=== PATIENT | male | born 1990 | race Caucasian/White ===

== ENCOUNTER 2024-02-29 09:36 | Emergency (ER) | payer OTHER, SELFPAY ==
[2024-02-29 09:58] VITALS: BP 148/98; PULSE 95; RESP 20; TEMP 36.8; O2SAT 96
[2024-02-29 10:12] LABS: Basophils Absolute Auto 0.1 K/mm3 (0.0-0.1); Basophils Percent Auto 1.1 % (0.2-1.2); Eosinophils Absolute Auto 0.2 K/mm3 (0-0.3); Eosinophils Percent Auto 2.7 % (0-4.4); Hematocrit 48.2 % (42.0-52.0); Immature Granulocyte Absolute 0.06 K/mm3 (0.00-0.031); Immature Granulocyte Percent A 0.8 % (0-0.5); Lymphocytes Absolute Auto 1.92 K/mm3 (0.9-3.2); Lymphocytes Percent Auto 26.2 % (18.3-44.2); Mean Corpuscular HGB Conc 35.3 g/dl (32-36); Mean Corpuscular Hemoglobin 32.2 pg (26-34); Mean Corpuscular Volume 91.3 fl (80-100); Mean Platelet Volume 8.3 fl (7.4-10.4); Monocytes Absolute Auto 0.6 K/mm3 (0.1-0.6); Neutrophils Absolute Auto 4.5 K/mm3 (1.3-6.7); Neutrophils Percent Auto 61.2 % (45.5-73.1); Platelet Count Result 397 k/mm3 (150-375); Red Blood Count 5.28 M/mm3 (4.6-6.20); Red Cell Distribution Width 12.3 % (11.5-14.5); White Blood Count 7.3 K/mm3 (4.5-10.0)
[2024-02-29 10:27] LABS: Alanine Aminotransferase 113 U/L (6-50); Alkaline Phosphatase 86 U/L (38-126); Anion Gap 13 mmol/L (4-12); Aspartate Amino Transferase 57 U/L (17-59); Bilirubin,Total 0.4 mg/dL (0.2-1.3); Blood Urea Nitrogen 9 mg/dL (9-20); Calcium 8.8 mg/dL (8.4-10.2); Carbon Dioxide 19 mmol/L (22-30); Chloride 105 mmol/L (98-107); Estimated CRCL calculation 133 ml/min; Estimated Glomerular Filt Rate > 60; Glucose 139 mg/dL (65-110); Potassium 3.8 mmol/L (3.4-5.0); Sodium 137 mmol/L (137-145)
--- NOTE | 2024-02-29 10:31 | ED_ITS ---
HPI - General Adult General Chief complaint: GI Bleed Stated complaint: blood in stool x4 days Time Seen by Provider: 02/29/24 09:41 History of Present Illness HPI narrative: 34-year-old male presents emergency department for evaluation for blood when wiping after a bowel movement. Patient states for the last 4-5 days he has noticed intermittent blood when wiping after a bowel movement. Patient states he does have longstanding history of diarrhea but has never had follow-up with GI physician. Patient denies any abdominal pain denies any rectal pain. Patient is not on any blood thinners. Related Data Allergies Allergy/AdvReac Type Severity Reaction Status Date / Time No Known Allergies Allergy Verified 02/29/24 10:03 Review of Systems Review of Systems: All systems reviewed & are unremarkable except as noted in HPI and below Exam Narrative: APPEARANCE: Well appearing, no pain, no distress, well-nourished. HEAD: normocephalic, atraumatic. EYES: PERRLA/EOMI, conjunctivae clear. NOSE: Normal no drainage EARS:TMS clear with good light reflex. THROAT: Pharynx clear, no exudate. NECK: Supple. No adenopathy, no masses. RESPIRATORY: Airway patent, respirations nonlabored. Clear to auscultation bilaterally, no rales, rhonchi, wheezing. CARDIOVASCULAR: Regular rate and rhythm without murmurs rubs or gallops. ABDOMINAL: Soft, nontender, nondistended, normal bowel sounds MUSCULOSKELETAL: Moves all extremities. Strength/ROM intact, No edema, No calf tenderness. NEURO: Alert. Cranial nerves II through XII intact. Good gait. Good coordination SKIN: Warm, dry. Normal Color Rectal: Hemoccult negative on the rectal exam, some stool on the exam Course Vital Signs Vital signs: Vital Signs Temperature 98.3 F 02/29/24 09:58 Pulse Rate 95 02/29/24 09:58 Respiratory Rate 20 02/29/24 09:58 Blood Pressure 148/98 H 02/29/24 09:58 Pulse Oximetry 96 02/29/24 09:58 Oxygen Delivery Room Air 02/29/24 09:58 Temperature 98.3 F 02/29/24 09:58 Pulse Rate 86 02/29/24 11:17 Respiratory Rate 18 02/29/24 11:17 Blood Pressure 147/98 H 02/29/24 11:17 Pulse Oximetry 96 02/29/24 11:17 Oxygen Delivery Room Air 02/29/24 09:58 Medical Decision Making MDM Narrative Medical decision making narrative: 34-year-old male presenting to the emergency department for evaluation for blood on toilet paper when wiping. Patient has Hemoccult negative rectal exam. Patient is afebrile with no leukocytosis and hemoglobin of 17. Patient's platelets are mildly elevated. Patient has no acute abnormalities on his CMP patient's blood type is O-positive. I do suspect internal hemorrhoids as potential underlying etiology. Patient has no abdominal tenderness to palpation had no sharp pain during the rectal exam. Low concern for diverticulitis colitis or anal fissure. Patient was encouraged of close follow-up with GI. Differential Diagnosis Differential Diagnosis: Colitis, diverticulitis, internal hemorrhoid, external hemorrhoid, anal fissure Vital Signs Vital Signs: Vital Signs Temperature 98.3 F 02/29/24 09:58 Pulse Rate 95 02/29/24 09:58 Respiratory Rate 20 02/29/24 09:58 Blood Pressure 148/98 H 02/29/24 09:58 Pulse Oximetry 96 02/29/24 09:58 Oxygen Delivery Room Air 02/29/24 09:58 Temperature 98.3 F 02/29/24 09:58 Pulse Rate 86 02/29/24 11:17 Respiratory Rate 18 02/29/24 11:17 Blood Pressure 147/98 H 02/29/24 11:17 Pulse Oximetry 96 02/29/24 11:17 Oxygen Delivery Room Air 02/29/24 09:58 Lab Data Lab results reviewed: Yes I reviewed the patient's lab results. 02/29/24 09:50 02/29/24 09:50 Labs: Lab Results 02/29/24 Range/Units 09:50 WBC 7.3 (4.5-10.0) K/mm3 RBC 5.28 (4.6-6.20) M/mm3 Hgb 17.0 (14.0-18.0) g/dL Hct 48.2 (42.0-52.0) % MCV 91.3 (80-100) fl MCH 32.2 (26-34) pg MCHC 35.3 (32-36) g/dl RDW 12.3 (11.5-14.5) % Plt Count 397 H (150-375) k/mm3 MPV 8.3 (7.4-10.4) fl Immature Gran % (Auto) 0.8 H (0-0.5) % Neut % (Auto) 61.2 (45.5-73.1) % Lymph % (Auto) 26.2 (18.3-44.2) % [place] % (Auto) 8.0 (2.6-8.5) % Eos % (Auto) 2.7 (0-4.4) % Baso % (Auto) 1.1 (0.2-1.2) % Lymph # (Auto) 1.92 (0.9-3.2) K/mm3 [place] # (Auto) 0.6 (0.1-0.6) K/mm3 Eos # (Auto) 0.2 (0-0.3) K/mm3 Baso # (Auto) 0.1 (0.0-0.1) K/mm3 Abs Immat Gran (auto) 0.06 H (0.00-0.031) K/mm3 Absolute Neuts (auto) 4.5 (1.3-6.7) K/mm3 Absolute Nucleated RBC 0.000 (0.0-0.012) K/mm3 Nucleated RBC % 0.0 (0.0-0.2) % PT 13.3 (11.1-14.7) Seconds INR 1.0 APTT 27.6 (22.3-36.8) Seconds Sodium 137 (137-145) mmol/L Potassium 3.8 (3.4-5.0) mmol/L Chloride 105 (98-107) mmol/L Carbon Dioxide 19 L (22-30) mmol/L Anion Gap 13 H (4-12) mmol/L BUN 9 (9-20) mg/dL Creatinine 0.80 (0.7-1.3) mg/dL Estim Creat Clear Calc 133 ml/min Estimated GFR > 60 (59 - ) Glucose 139 H (65-110) mg/dL Calcium 8.8 (8.4-10.2) mg/dL Total Bilirubin 0.4 (0.2-1.3) mg/dL AST 57 (17-59) U/L ALT 113 H (6-50) U/L Alkaline Phosphatase 86 (38-126) U/L Total Protein 9.0 H (6.3-8.2) g/dL Albumin 5.0 (3.5-5.1) g/dL Blood Type O Positive Antibody Screen Negative Discharge Plan Discharge Clinical Impression: Hemorrhoids Patient Disposition: Home, Self-Care Condition: Stable Instructions: Antibiotic Form, Rectal Bleeding (ED) Additional Instructions: Have close follow-up with your primary care physician. Also recommend close follow-up with GI. If you have any worsening symptoms then please call or return to the emergency department. [id number] treatments for hemorrhoids may be helpful such as Preparation H Follow-up/Referrals: Tray,MD Miguelangel [Primary Care Provider] - Arjun Kim MD [Physician] -
[2024-02-29 10:37] LABS: Prothrombin Time 13.3 Seconds (11.1-14.7)
[2024-02-29 10:38] LABS: Partial Thromboplastin Time 27.6 Seconds (22.3-36.8)
[2024-02-29 11:17] VITALS: BP 147/98; PULSE 86; RESP 18; O2SAT 96
== END 2024-02-29 11:18 | disposition home or self-care (01) ==
PROVIDERS: Physician Assistant; Emergency Provider Emergency Medicine; PCP Internal Medicine
DX: K64.9 Unspecified hemorrhoids (principal)
CPT/HCPCS: 36415; 80053; 85025; 85610; 85730; 86850; 86900; 86901; 99283